=== PATIENT | female | born 1960 | race Caucasian/White ===

== ENCOUNTER → 2016-10-31 09:30 | Outpatient (CLI) | payer OTHER ==
--- NOTE | 2016-11-05 08:21 | EEG ---
PATIENT:DELFIN DARBY DATE OF SERVICE: 10/31/16 MEDICAL RECORD: [id number] DATE OF : 56 LOCATION: [facility] ADMISSION DATE: 10/31/16 REFERRING PHYSICIAN: INTERPRETING PHYSICIAN: DANIEL LANIER MD DATE OF SERVICE: 10/31/2016 Referred by myself as an outpatient. ELECTROENCEPHALOGRAM NUMBER: [id number]. DATE OF EXAMINATION: 10/31/2016 at 11:20 a.m. TECHNICAL DATA: This electroencephalographic recording consists of approximately 20 minutes of data collection utilizing the international 10/20 system of electrode placement and both referential and non-referential montages. Sixteen channels of electrocerebral recording are accompanied by a 17th channel dedicated to the electrocardiographic rhythm and 2 channels of electromyographic recording. Recording is performed in the awake and sleep states utilizing activation by photic stimulation. ELECTROENCEPHALOGRAPHIC DATA: The awake state comprises only approximately 30% of the recorded electrocerebral activity. Electromyographic artifact is prominent and rapid eye movements are seen. The posterior dominant background consists of a symmetric, semi-rhythmic, waxing and waning 8-9 Hz alpha activity, which is suppressed by eye opening. The drowsy state comprises approximately 40% of the recorded electrocerebral activity. Electromyographic artifact is diminished and rapid eye movements are not seen. The posterior dominant background is relatively suppressed. Also seen are positive occipital sharp transients of sleep. The transition to stage II sleep, which comprises the remaining portion of the recorded electrocerebral activity is heralded by the appearance of typical 15 Hz sleep spindles. No abnormal or focal slowing is identified. No epileptiform discharges are seen. Photic stimulation induces no abnormal change in the recorded electrocerebral activity. INTERPRETATION: Normal (awake and asleep). This is a normal electroencephalographic recording. TRANSINT:[id number] Voice Confirmation ID: [id number] DOCUMENT ID: [id number] ELECTROENCEPHALOGRAM REPORT [id number] DELFIN DARBY DANIEL LANIER MD at 0821 CC: [id number] DICTATION DATE: 11/01/16 0832 RECRUITING ASSISTANT: 11/02/16 0136 DEP CLI 10/31/16 [place] [address]
== END | disposition home or self-care (01) ==
LOC: D.CN 09:30
DX: R55 Syncope and collapse (principal); G40.A09 Absence epileptic syndrome, not intractable, without status epilepticus

== ENCOUNTER → 2017-01-05 06:56 | Outpatient (CLI) | payer OTHER ==
[2017-01-05 07:36] LABS: BASOPHILS 0.2 % (0-2); HEMATOCRIT 38.3 % (36.0-48.0); HEMOGLOBIN 12.7 g/dL (12-16); IMMATURE GRANULOCYTES 0.7 % (0-5); LYMPHOCYTES 45.8 % (15-50); MCH 30.2 pg (26.0-34.0); MCHC 33.2 g/dL (31.0-37.0); MCV 91.2 fL (80.0-100.0); MEAN PLATELET VOLUME 9.7 fL (7.4-10.4); MONOCYTES 10.5 % (2-11); NEUTROPHILS 40.8 % (40-80); PLATELET COUNT 248 10x3/uL (130-400); RDW 13.7 % (11.5-14.5); WBC 4.6 10x3/uL (4.8-10.8)
[2017-01-05 08:05] LABS: ALBUMIN 3.5 g/dL (3.4-5.0); ANION GAP 13.4 mmol/L (8-16); BILIRUBIN - TOTAL 0.17 mg/dL (0.2-1.3); CALCIUM 8.9 mg/dL (8.5-10.1); CARBON DIOXIDE 26.3 mmol/L (21.0-32.0); CREATININE - SERUM 1.1 mg/dL (0.6-1.3); POTASSIUM - SERUM 3.7 mmol/L (3.5-5.1); PROTEIN - SERUM 7.5 g/dL (6.4-8.2); THYROID STIMULATING HORMONE 5.1 uIU/mL (0.36-3.74)
== END | disposition home or self-care (01) ==
LOC: D.LAB 06:56 → D.CT 08:00
PROVIDERS: Psychiatry & Neurology Neurology
DX: R55 Syncope and collapse (principal); G40.A09 Absence epileptic syndrome, not intractable, without status epilepticus